=== PATIENT | female | born 1995 | race African-American/Black ===

== ENCOUNTER 2023-03-15 00:46 | Emergency (ER) | payer OTHER ==
[~2023-03-15] VITALS: Ht 162.6 cm; Wt 72.7 kg
[2023-03-15 04:47] VITALS: BP 124/69; PULSE 68; RESP 17; TEMP 97.3
[2023-03-15] MEDS ORDERED: IBUP-1492 PO (04:54)
[2023-03-15] MEDS ORDERED: CEPH-558 PO (04:54)
== END 2023-03-15 05:20 | disposition home or self-care (01) ==
LOC: EMS 00:46
DX: N63.13 Unspecified lump in the right breast, lower outer quadrant (principal); F12.90 Cannabis use, unspecified, uncomplicated
CPT/HCPCS: 99283; Z7502